=== PATIENT | female | born 1990 | race Caucasian/White ===

== ENCOUNTER → 2016-08-10 | Outpatient (REF) | payer OTHER ==
[~2016-08-10] MED LIST: ACET50TA PO; ANUS2.5C2 TOP; COLA100C PO; FIOR1CAP PO; MOM30SS PO; MOTR200T44 PO; PERC5TAB6 PO
[2016-08-10 11:32] LABS: MEAN CORPUSCULAR HEMOGLOBIN 32.3 pg (27.0-33.0); MEAN CORPUSCULAR HGB CONC 33.9 g/dl (32.0-36.5); MEAN CORPUSCULAR VOLUME 95.4 fl (80.0-96.0); RED CELL DISTRIBUTION WIDTH 12.9 % (11.5-14.5)
[2016-08-10 12:03] LABS: ALBUMIN 4.1 GM/DL (3.2-5.2); ALBUMIN/GLOBULIN RATIO 1.32 (1.00-1.93); ALKALINE PHOSPHATASE 76 U/L (45-117); ALT/SGPT 26 U/L (12-78); ANION GAP 5 MEQ/L (8-16); AST/SGOT 15 U/L (15-37); BILIRUBIN,TOTAL 0.3 MG/DL (0.2-1.0); BLOOD UREA NITROGEN 14 MG/DL (7-18); CALCIUM LEVEL 8.7 MG/DL (8.5-10.1); CARBON DIOXIDE LEVEL 29 MEQ/L (21-32); CHLORIDE LEVEL 109 MEQ/L (98-107); CREATININE FOR GFR 0.65 MG/DL (0.55-1.02); GLOMERULAR FILTRATION RATE > 60.0 (>60); GLUCOSE, FASTING 63 MG/DL (70-105); POTASSIUM SERUM 4.3 MEQ/L (3.5-5.1); SODIUM LEVEL 143 MEQ/L (136-145); TOTAL PROTEIN 7.2 GM/DL (6.4-8.2)
== END ==
LOC: M SFHCLERA 08:34
PROVIDERS: ATTEND Physician Assistant
DX: F41.9 Anxiety disorder, unspecified (principal)

== ENCOUNTER 2016-08-30 12:21 | Emergency (ER) | payer OTHER ==
[2016-08-30] MEDS ORDERED: KETOROLAC 30 MG/ML VIAL (J1885) As Ordered ONE (13:14)
[2016-08-30] MEDS ORDERED: ALBUTEROL 90 MCG/ACT 8GM HFA INHALER As Ordered ONE (13:37)
--- NOTE | 2016-08-30 13:55 | EDDOCDS ---
Nurse's Notes [facility] Name: Kranthi Grier Age: 25 yrs Sex: Female : 1990 Arrival Date: 08/30/2016 Time: 12:21 Bed I6 / 28 Private MD: Jonatan Mathis R. Diagnosis: Acute bronchitis;Headache Presentation: 08/30 12:28 Presenting complaint: Patient states: that she has noticed some SOB upon exertion about ms18 1-2 weeks ago. Pt states that when it happens, she starts to cough. Cool air helps calm the pt's symptoms. This patient has no additional risk factors. Adult Sepsis Screening: The patient does not have new or worsening altered mentation. Patient's respiratory rate is less than 22. Systolic blood pressure is greater than 100. Patient has a qSOFA score of 0- Negative Sepsis Screen. Suicide/Homicide risk assessment- the patient denies having any suicidal and/or homicidal ideations and does not present with any other emotional, behavioral or mental health complaints. Status: The patient is a dependent. Transition of care: patient was not received from another setting of care. 12:28 Acuity: CHRISTINE Level 3 ms18 12:28 Method Of Arrival: Walkin/Carried/Asstd ms18 Triage Assessment: 12:33 Headache History: Other not like previous headaches. General: Appears in no apparent ms18 distress, comfortable, Behavior is appropriate for age, cooperative. Pain: Location: head Pain currently is 7 out of 10 on a pain scale. Pain began 1 day ago Also complains of photophobia. HIV screening NA for this visit Offered previously. The patient is triaged at the bedside. See Assessment in Nurses Notes section of ED record. The patient is triaged at the bedside. See Assessment in Nurses Notes section of ED record. Neurological: Level of Consciousness is awake, alert, obeys commands, Oriented to person, place, time. Respiratory: Airway is patent Respiratory effort is even, unlabored. Derm: Skin is pink, warm & dry. 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 Fioricet 50-300-40 mg Oral cap 1 cap every 8 hours - PMHx: Depression; Headaches; - PSHx: D & C; - Social history: Smoking status: Patient uses tobacco products, current some day smoker. No barriers to communication noted, The patient speaks fluent Emirati. - Family history: Not pertinent. - : The pt / caregiver states he / she is not on anticoagulants. Home medication list is obtained from the patient. - Exposure Risk Screening:: None identified. Screenin:20 Screening information is obtained from the patient. Fall risk: No risks identified. jmk Assistance ADL's: requires no assistance with activities of daily living. Abuse/DV Screen: The patient / caregiver reports he/she is: not in a situation that causes fear, pain or injury. Nutritional screening: No deficits noted. Advance Directives: Currently, there is no health care proxy. There is no active DNR order. There is no living will. There is no Power of Tag Maker. Advance directive information has not previously been placed in an [facility] medical record. home support is adequate. Assessment: 13:18 General: Appears in no apparent distress, skin warm and dry color satisfactory . alert jmk and oriented x 3. slightly photophobic. Indicates discomfort about forehead., chest is CTA. no use of accessory muscles. speech uninterrupted by resp effort.. Neurological: Level of Consciousness is awake, Oriented to person, place, time. Respiratory: No deficits noted. Airway is patent Respiratory effort is even, unlabored, Respiratory pattern is regular, Breath sounds are clear bilaterally. 13:50 General: Appears continues to present in NAD. reports little change in head pain. jmk concerned over coughing after getting MDI. education provided. Vital Signs: 12:25 BP 132 / 73; Pulse 78; Resp 18 S; Temp 98.2(O); Pulse Ox 98% on R/A; Weight 65.77 kg gr2 (R); Height 5 ft. 9 in. (175.26 cm) (R); Pain 6/10; 13:48 BP 125 / 68; Pulse 70; Resp 18; Temp 98.0(O); Pulse Ox 98% ; Pain 7/10; jrd 12:25 Body Mass Index 21.41 (65.77 kg, 175.26 cm) gr2 Vitals: 12:25 Log In Time: August 30, 2016 at 12:25. gr2 ED Course: 12:23 Patient visited by Cb Negrete. gr2 12:23 Patient moved to Waiting gr2 12:24 Jonatan Mathis is Private Physician. gr2 12:26 Patient visited by Cb Negrete. gr2 12:26 Patient moved to Pre RCE gr2 12:30 Triage Initiated ms18 12:56 Patient moved to Triage 1 mlb1 12:59 Godfrey Bullock PA-C is PHCP. cc10 12:59 Javier Romero MD is Attending Physician. cc10 12:59 Patient visited by Godfrey Bullock PA-C. cc10 12:59 Patient visited by Godfrey Bullock PA-C. cc10 13:12 Patient moved to I6 / 28 mlb1 13:20 Patient visited by Shan Hernandez RN. jmk 13:26 Jonatan Mathis is Referral Physician. cc10 13:48 Patient visited by Arnol Cuevas PCA. jrd 13:50 The patient / caregiver is instructed regarding the plan of care and ED course. jmk 13:50 No IV's were initiated during this patient's visit. No procedures done that require jmk assistance. Administered Medications: 13:24 Drug: ketorolac 60 mg [ketorolac 30 mg/mL (1 mL) injection solution (2 mL)] Route: IM; mb9 Site: right gluteus; 13:50 Follow up: Response: No significant change. jmk 13:43 Drug: Ventolin 2 puffs [Ventolin HFA 90 mcg/actuation aerosol inhaler (2 puffs)] Route: cs15 Inhalation; Point of Care Testing: Urine : 13:12 hCG Reading: Negative; Control Reading: Positive; mlb1 Ranges: RT: 13:43 Initial Med Neb Given as ordered. Oxygen is room air. Respiratory: Respiratory effort cs15 is unlabored, Respiratory pattern is symmetrical, Breath sounds are clear bilaterally. Reports shortness of breath when active or laying down. Order Results: There are currently no results for this order. Outcome: 13:26 Discharge ordered by Provider. cc10 13:50 Discharge Assessment: Patient awake, alert and oriented x 3. No cognitive and/or jmk functional deficits noted. Patient verbalized understanding of disposition instructions. patient administered narcotics - no. The following High Risk Discharge criteria are identified: None. Discharged to home ambulatory. Condition: good. Discharge instructions given to patient, Instructed on discharge instructions, follow up and referral plans. medication usage, Demonstrated understanding of instructions, medications, Pt was receptive of discharge instructions/ teaching. No special radiology studies were completed. Property :Personal belongings accompany Pt. 13:53 Patient left the ED. malinda Signatures: Shan Hernandez,RN RN Chandrakant Morales RN RN mlb1 Cb Negrete gr2 Godfrey Bullock, PA-C PA-C cc10 Maday WallerRN RN ms18 Arnol Cuevas PCA ROLL PLUGGER MACHINE OPERATOR Chandrakant KingRN RN mb9 Ran Johnson,RT RT cs15 MTDD
--- NOTE | 2016-08-30 13:55 | EDDOCDS ---
Physician Documentation [facility] Name: Kranthi Grier Age: 25 yrs Sex: Female : 1990 Arrival Date: 08/30/2016 Time: 12:21 Bed I6 Private MD: Jonatan Mathis R. Disposition: 08/30/16 13:26 Discharged to Home/Self Care. Impression: Acute bronchitis, Headache. - Condition is Stable. - Discharge Instructions: Acute Bronchitis, General Headache Without Cause. - Medication Reconciliation form. - Follow up: Jonatan Mathis; When: Call to arrange an appointment; Reason: Wound/Symptom Recheck, Recheck today's complaints, Continuance of care. - Problem is an ongoing problem. - Symptoms have improved. - Notes: May use 2 puffs of albuterol every 6 hours as needed for wheezing. Follow up with your regular doctor as discussed. Historical: - Allergies: Morphinemigraine; - Home Meds: 1. Fioricet 50-300-40 mg Oral cap 1 cap every 8 hours - PMHx: Depression; Headaches; - PSHx: D & C; - Social history: Smoking status: Patient uses tobacco products, current some day smoker. No barriers to communication noted, The patient speaks fluent Eritrean. - Family history: Not pertinent. - : The pt / caregiver states he / she is not on anticoagulants. Home medication list is obtained from the patient. - Exposure Risk Screening:: None identified. 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 9 in. (175.26 cm) (R); Pain 6/10; 13:48 BP 125 / 68; Pulse 70; Resp 18; Temp 98.0(O); Pulse Ox 98% ; Pain 7/10; jrd 12:25 Body Mass Index 21.41 (65.77 kg, 175.26 cm) gr2 MDM: 13:03 Call Respiratory ordered. cc10 13:03 MDI teaching with Spacer ordered. cc10 13:03 Ventolin Inhaler 2 puffs Inhalation once ordered. cc10 13:03 ketorolac 60 mg IM once ordered. cc10 13:04 Financial registration complete. lg 13:11 UCG by Nursing ordered. cc10 13:12 Call Respiratory complete. mlb1 Point of Care Testing: Urine : 13:12 hCG Reading: Negative; Control Reading: Positive; mlb1 Ranges: Administered Medications: 13:24 Drug: ketorolac 60 mg [ketorolac 30 mg/mL (1 mL) injection solution (2 mL)] Route: IM; mb9 Site: right gluteus; 13:50 Follow up: Response: No significant change. berek 13:43 Drug: Ventolin 2 puffs [Ventolin HFA 90 mcg/actuation aerosol inhaler (2 puffs)] Route: cs15 Inhalation; Signatures: Shan Hernandez,STEVIE RN berek Liza Jhaveri, Dionte Reg Chandrakant Vitale RN RN mlb1 Godfrey Bullock, PA-C PA-C cc10 Maday Waller RN RN ms18 Chandrakant Devine RN mb9 Ran Johnson RT cs15 MTDD
--- NOTE | 2016-09-01 14:55 | EDDOCDS ---
Nurse's Notes [facility] Name: Kranthi Grier Age: 25 yrs Sex: Female : 1990 Arrival Date: 08/30/2016 Time: 12:21 Bed I6 / 28 Private MD: Jonatan Mathis R. Diagnosis: Acute bronchitis;Headache Presentation: 08/30 12:28 Presenting complaint: Patient states: that she has noticed some SOB upon exertion about ms18 1-2 weeks ago. Pt states that when it happens, she starts to cough. Cool air helps calm the pt's symptoms. This patient has no additional risk factors. Adult Sepsis Screening: The patient does not have new or worsening altered mentation. Patient's respiratory rate is less than 22. Systolic blood pressure is greater than 100. Patient has a qSOFA score of 0- Negative Sepsis Screen. Suicide/Homicide risk assessment- the patient denies having any suicidal and/or homicidal ideations and does not present with any other emotional, behavioral or mental health complaints. Status: The patient is a dependent. Transition of care: patient was not received from another setting of care. 12:28 Acuity: CHRISTINE Level 3 ms18 12:28 Method Of Arrival: Walkin/Carried/Asstd ms18 Triage Assessment: 12:33 Headache History: Other not like previous headaches. General: Appears in no apparent ms18 distress, comfortable, Behavior is appropriate for age, cooperative. Pain: Location: head Pain currently is 7 out of 10 on a pain scale. Pain began 1 day ago Also complains of photophobia. HIV screening NA for this visit Offered previously. The patient is triaged at the bedside. See Assessment in Nurses Notes section of ED record. The patient is triaged at the bedside. See Assessment in Nurses Notes section of ED record. Neurological: Level of Consciousness is awake, alert, obeys commands, Oriented to person, place, time. Respiratory: Airway is patent Respiratory effort is even, unlabored. Derm: Skin is pink, warm & dry. 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 Fioricet 50-300-40 mg Oral cap 1 cap every 8 hours - PMHx: Depression; Headaches; - PSHx: D & C; - Social history: Smoking status: Patient uses tobacco products, current some day smoker. No barriers to communication noted, The patient speaks fluent Armenian. - Family history: Not pertinent. - : The pt / caregiver states he / she is not on anticoagulants. Home medication list is obtained from the patient. - Exposure Risk Screening:: None identified. Screenin:20 Screening information is obtained from the patient. Fall risk: No risks identified. jmk Assistance ADL's: requires no assistance with activities of daily living. Abuse/DV Screen: The patient / caregiver reports he/she is: not in a situation that causes fear, pain or injury. Nutritional screening: No deficits noted. Advance Directives: Currently, there is no health care proxy. There is no active DNR order. There is no living will. There is no Power of Security Business Analyst. Advance directive information has not previously been placed in an [facility] medical record. home support is adequate. Assessment: 13:18 General: Appears in no apparent distress, skin warm and dry color satisfactory . alert jmk and oriented x 3. slightly photophobic. Indicates discomfort about forehead., chest is CTA. no use of accessory muscles. speech uninterrupted by resp effort.. Neurological: Level of Consciousness is awake, Oriented to person, place, time. Respiratory: No deficits noted. Airway is patent Respiratory effort is even, unlabored, Respiratory pattern is regular, Breath sounds are clear bilaterally. 13:50 General: Appears continues to present in NAD. reports little change in head pain. jmk concerned over coughing after getting MDI. education provided. Vital Signs: 12:25 BP 132 / 73; Pulse 78; Resp 18 S; Temp 98.2(O); Pulse Ox 98% on R/A; Weight 65.77 kg gr2 (R); Height 5 ft. 9 in. (175.26 cm) (R); Pain 6/10; 13:48 BP 125 / 68; Pulse 70; Resp 18; Temp 98.0(O); Pulse Ox 98% ; Pain 7/10; jrd 12:25 Body Mass Index 21.41 (65.77 kg, 175.26 cm) gr2 Vitals: 12:25 Log In Time: August 30, 2016 at 12:25. gr2 ED Course: 12:23 Patient visited by Cb Negrete. gr2 12:23 Patient moved to Waiting gr2 12:24 Jonatan Mathis is Private Physician. gr2 12:26 Patient visited by Cb Negrete. gr2 12:26 Patient moved to Pre RCE gr2 12:30 Triage Initiated ms18 12:56 Patient moved to Triage 1 mlb1 12:59 Godfrey Bullock PA-C is PHCP. cc10 12:59 Javier Romero MD is Attending Physician. cc10 12:59 Patient visited by Godfrey Bullock PA-C. cc10 12:59 Patient visited by Godfrey Bullock PA-C. cc10 13:12 Patient moved to I6 / 28 mlb1 13:20 Patient visited by Shan Hernandez RN. jmk 13:26 Jonatan Mathis is Referral Physician. cc10 13:48 Patient visited by Arnol Cuevas PCA. jrd 13:50 The patient / caregiver is instructed regarding the plan of care and ED course. jmk 13:50 No IV's were initiated during this patient's visit. No procedures done that require jmk assistance. 14:18 [facility] Payment Agreement was scanned into [employer] and attached to record. 14:48 T-Sheet-- Draft Copy was scanned into [employer] and attached to record. klr Administered Medications: 13:24 Drug: ketorolac 60 mg [ketorolac 30 mg/mL (1 mL) injection solution (2 mL)] Route: IM; mb9 Site: right gluteus; 13:50 Follow up: Response: No significant change. jmk 13:43 Drug: Ventolin 2 puffs [Ventolin HFA 90 mcg/actuation aerosol inhaler (2 puffs)] Route: cs15 Inhalation; Point of Care Testing: Urine : 13:12 hCG Reading: Negative; Control Reading: Positive; mlb1 Ranges: RT: 13:43 Initial Med Neb Given as ordered. Oxygen is room air. Respiratory: Respiratory effort cs15 is unlabored, Respiratory pattern is symmetrical, Breath sounds are clear bilaterally. Reports shortness of breath when active or laying down. Order Results: There are currently no results for this order. Outcome: 13:26 Discharge ordered by Provider. cc10 13:50 Discharge Assessment: Patient awake, alert and oriented x 3. No cognitive and/or jmk functional deficits noted. Patient verbalized understanding of disposition instructions. patient administered narcotics - no. The following High Risk Discharge criteria are identified: None. Discharged to home ambulatory. Condition: good. Discharge instructions given to patient, Instructed on discharge instructions, follow up and referral plans. medication usage, Demonstrated understanding of instructions, medications, Pt was receptive of discharge instructions/ teaching. No special radiology studies were completed. Property :Personal belongings accompany Pt. 13:53 Patient left the ED. malinda Signatures: Shan Hernandez,RN RN Liza Bravo, Reg Reg lg Chandrakant Vitale, RN RN mlb1 Cb Negrete gr2 Godfrey Bullock, PA-C PA-C cc10 Maday Waller,RN RN ms18 Arnol Cuevas, MEMBER SERVICES COORDINATOR MEMBER SERVICES COORDINATOR d Chandrakant Devine,RN RN mb9 Ran Johnson,RT RT cs15 Leigh Ann Gray Chart Complete NIVIA
--- NOTE | 2016-09-01 14:55 | EDDOCDS ---
Physician Documentation [facility] Name: Kranthi Grier Age: 25 yrs Sex: Female : 1990 Arrival Date: 08/30/2016 Time: 12:21 Bed I6 Private MD: Jonatan Mathis R. Disposition: 08/30/16 13:26 Discharged to Home/Self Care. Impression: Acute bronchitis, Headache. - Condition is Stable. - Discharge Instructions: Acute Bronchitis, General Headache Without Cause. - Medication Reconciliation form. - Follow up: Jonatan Mathis; When: Call to arrange an appointment; Reason: Wound/Symptom Recheck, Recheck today's complaints, Continuance of care. - Problem is an ongoing problem. - Symptoms have improved. - Notes: May use 2 puffs of albuterol every 6 hours as needed for wheezing. Follow up with your regular doctor as discussed. Historical: - Allergies: Morphinemigraine; - Home Meds: 1. Fioricet 50-300-40 mg Oral cap 1 cap every 8 hours - PMHx: Depression; Headaches; - PSHx: D & C; - Social history: Smoking status: Patient uses tobacco products, current some day smoker. No barriers to communication noted, The patient speaks fluent Cameroonian. - Family history: Not pertinent. - : The pt / caregiver states he / she is not on anticoagulants. Home medication list is obtained from the patient. - Exposure Risk Screening:: None identified. 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 9 in. (175.26 cm) (R); Pain 6/10; 13:48 BP 125 / 68; Pulse 70; Resp 18; Temp 98.0(O); Pulse Ox 98% ; Pain 7/10; jrd 12:25 Body Mass Index 21.41 (65.77 kg, 175.26 cm) gr2 MDM: 13:03 Call Respiratory ordered. cc10 13:03 MDI teaching with Spacer ordered. cc10 13:03 Ventolin Inhaler 2 puffs Inhalation once ordered. cc10 13:03 ketorolac 60 mg IM once ordered. cc10 13:04 Financial registration complete. lg 13:11 UCG by Nursing ordered. cc10 13:12 Call Respiratory complete. mlb1 14:18 [facility] Payment Agreement was scanned into [employer] and attached to record. lg 14:48 T-Sheet-- Draft Copy was scanned into [employer] and attached to record. klr Point of Care Testing: Urine : 13:12 hCG Reading: Negative; Control Reading: Positive; mlb1 Ranges: Administered Medications: 13:24 Drug: ketorolac 60 mg [ketorolac 30 mg/mL (1 mL) injection solution (2 mL)] Route: IM; mb9 Site: right gluteus; 13:50 Follow up: Response: No significant change. berek 13:43 Drug: Ventolin 2 puffs [Ventolin HFA 90 mcg/actuation aerosol inhaler (2 puffs)] Route: cs15 Inhalation; Signatures: Shan Hernandez,RN RN jmk Liza Jhaveri, Dionte Rapp lg Chandrakant Vitale RN RN mlb1 Godfrey Bullock, PA-C PA-C cc10 Maday Waller RN RN ms18 Leigh Ann Gray Michael RN mb9 Ran Johnson RT cs15 The chart was reviewed and I authenticate all verbal orders and agree with the evaluation and treatment provided.Attachments: 14:18 [facility] Payment Agreement lg 14:48 T-Sheet-- Draft Copy klr Chart Complete MTDD
--- NOTE | 2016-09-01 14:55 | EDDOCDS ---
Physician Documentation [facility] Name: Kranthi Grier Age: 25 yrs Sex: Female : 1990 Arrival Date: 08/30/2016 Time: 12:21 Bed I6 Private MD: Jonatan Mathis R. Disposition: 08/30/16 13:26 Discharged to Home/Self Care. Impression: Acute bronchitis, Headache. - Condition is Stable. - Discharge Instructions: Acute Bronchitis, General Headache Without Cause. - Medication Reconciliation form. - Follow up: Jonatan Mathis; When: Call to arrange an appointment; Reason: Wound/Symptom Recheck, Recheck today's complaints, Continuance of care. - Problem is an ongoing problem. - Symptoms have improved. - Notes: May use 2 puffs of albuterol every 6 hours as needed for wheezing. Follow up with your regular doctor as discussed. Historical: - Allergies: Morphinemigraine; - Home Meds: 1. Fioricet 50-300-40 mg Oral cap 1 cap every 8 hours - PMHx: Depression; Headaches; - PSHx: D & C; - Social history: Smoking status: Patient uses tobacco products, current some day smoker. No barriers to communication noted, The patient speaks fluent Fijian. - Family history: Not pertinent. - : The pt / caregiver states he / she is not on anticoagulants. Home medication list is obtained from the patient. - Exposure Risk Screening:: None identified. 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 9 in. (175.26 cm) (R); Pain 6/10; 13:48 BP 125 / 68; Pulse 70; Resp 18; Temp 98.0(O); Pulse Ox 98% ; Pain 7/10; jrd 12:25 Body Mass Index 21.41 (65.77 kg, 175.26 cm) gr2 MDM: 13:03 Call Respiratory ordered. cc10 13:03 MDI teaching with Spacer ordered. cc10 13:03 Ventolin Inhaler 2 puffs Inhalation once ordered. cc10 13:03 ketorolac 60 mg IM once ordered. cc10 13:04 Financial registration complete. lg 13:11 UCG by Nursing ordered. cc10 13:12 Call Respiratory complete. mlb1 14:18 [facility] Payment Agreement was scanned into [employer] and attached to record. lg 14:48 T-Sheet-- Draft Copy was scanned into [email or web address] and attached to record. klr Point of Care Testing: Urine : 13:12 hCG Reading: Negative; Control Reading: Positive; mlb1 Ranges: Administered Medications: 13:24 Drug: ketorolac 60 mg [ketorolac 30 mg/mL (1 mL) injection solution (2 mL)] Route: IM; mb9 Site: right gluteus; 13:50 Follow up: Response: No significant change. berek 13:43 Drug: Ventolin 2 puffs [Ventolin HFA 90 mcg/actuation aerosol inhaler (2 puffs)] Route: cs15 Inhalation; Signatures: Shan Hernandez,RN RN jmk Liza Jhaveri, Dionte Rapp lg Chandrakant Vitale RN RN mlb1 Godfrey Bullock, PA-C PA-C cc10 Maday Waller RN RN ms18 Leigh Ann Gray Michael RN mb9 Ran Johnson RT cs15 The chart was reviewed and I authenticate all verbal orders and agree with the evaluation and treatment provided.Attachments: 14:18 [facility] Payment Agreement lg 14:48 T-Sheet-- Draft Copy klr Chart Complete MTDD
== END 2016-08-30 13:53 | disposition home or self-care (01) ==
LOC: M ED 12:21
DX: J20.9 Acute bronchitis, unspecified (principal); R51 Headache; F32.9 Major depressive disorder, single episode, unspecified; Z72.0 Tobacco use; Z88.5 Allergy status to narcotic agent
CPT/HCPCS: 81025; 94640; 96372; 99283; J1885

== ENCOUNTER → 2016-10-03 | Outpatient (REF) | payer OTHER ==
[2016-10-03 18:14] LABS: ALBUMIN 4.2 GM/DL (3.2-5.2); ALBUMIN/GLOBULIN RATIO 1.45 (1.00-1.93); ALKALINE PHOSPHATASE 98 U/L (45-117); ALT/SGPT 30 U/L (12-78); ANION GAP 7 MEQ/L (8-16); AST/SGOT 20 U/L (15-37); BILIRUBIN,TOTAL 0.2 MG/DL (0.2-1.0); BLOOD UREA NITROGEN 14 MG/DL (7-18); CALCIUM LEVEL 9.1 MG/DL (8.5-10.1); CARBON DIOXIDE LEVEL 29 MEQ/L (21-32); CHLORIDE LEVEL 103 MEQ/L (98-107); CREATININE FOR GFR 0.62 MG/DL (0.55-1.02); GLOMERULAR FILTRATION RATE > 60.0 (>60); GLUCOSE, FASTING 98 MG/DL (70-105); POTASSIUM SERUM 4.3 MEQ/L (3.5-5.1); SODIUM LEVEL 139 MEQ/L (136-145); TOTAL PROTEIN 7.1 GM/DL (6.4-8.2)
[2016-10-06 00:10] LABS: Lyme Disease IgG/IgM Antibodie <0.91 ISR (0.00-0.90); Lyme Disease IgM Ab Quantitati <0.80 index (0.00-0.79)
== END ==
LOC: M SFHCLERA 13:39
PROVIDERS: ATTEND Physician Assistant
DX: M62.82 Rhabdomyolysis (principal)

== ENCOUNTER → 2016-10-04 | Outpatient (REF) | payer OTHER ==
[~2016-10-04] MED LIST changes: +DICL75TA; +FLOM5CAP PO; +NORCOTAB PO; +RIZA5TAB3; +ZOFR4TAB3 PO
== END ==
LOC: M LAB REF 17:05
PROVIDERS: ATTEND Advanced Practice Midwife
DX: Z12.4 Encounter for screening for malignant neoplasm of cervix (principal)

== ENCOUNTER 2016-10-07 14:47 | Emergency (ER) | payer OTHER ==
[~2016-10-07] VITALS: Ht 175.3 cm; Wt 66.7 kg
[~2016-10-07 14:47] MED LIST changes: -COLA100C PO; +COLA100C3 PO; -DICL75TA; -FLOM5CAP PO; -NORCOTAB PO; -RIZA5TAB3; -ZOFR4TAB3 PO
[2016-10-07] MEDS ORDERED: DICL75TA (14:54)
[2016-10-07] MEDS ORDERED: RIZA5TAB3 (14:54)
[2016-10-07] MEDS ORDERED: KETOROLAC 30 MG/ML VIAL (J1885) IV ONE (15:15)
[2016-10-07] MEDS ORDERED: ONDANSETRON 4MG/2ML VIAL (J2405) IV ONE ×2 (15:15→16:15)
[2016-10-07] MEDS ORDERED: NS 1,000 ML IV ONE (15:15)
[2016-10-07 16:00] LABS: ALBUMIN 4.1 GM/DL (3.2-5.2); ALBUMIN/GLOBULIN RATIO 1.37 (1.00-1.93); ALKALINE PHOSPHATASE 93 U/L (45-117); ALT/SGPT 22 U/L (12-78); ANION GAP 8 MEQ/L (8-16); AST/SGOT 15 U/L (15-37); BILIRUBIN,DIRECT < 0.1 MG/DL (0.0-0.2); BILIRUBIN,TOTAL 0.3 MG/DL (0.2-1.0); BLOOD UREA NITROGEN 11 MG/DL (7-18); CALCIUM LEVEL 8.4 MG/DL (8.5-10.1); CARBON DIOXIDE LEVEL 27 MEQ/L (21-32); CHLORIDE LEVEL 107 MEQ/L (98-107); CREATININE FOR GFR 0.67 MG/DL (0.55-1.02); GLOMERULAR FILTRATION RATE > 60.0 (>60); GLUCOSE, FASTING 105 MG/DL (70-105); POTASSIUM SERUM 4.1 MEQ/L (3.5-5.1); SODIUM LEVEL 142 MEQ/L (136-145); TOTAL PROTEIN 7.1 GM/DL (6.4-8.2)
[2016-10-07 16:07] LABS: MEAN CORPUSCULAR HEMOGLOBIN 31.1 pg (27.0-33.0); MEAN CORPUSCULAR HGB CONC 32.9 g/dl (32.0-36.5); MEAN CORPUSCULAR VOLUME 94.4 fl (80.0-96.0); PLATELET COUNT, AUTOMATED 284 k/mm3 (150-450); RED CELL DISTRIBUTION WIDTH 11.7 % (11.5-14.5); WHITE BLOOD COUNT 5.1 K/mm3 (4.0-10.0)
[2016-10-07] MEDS ORDERED: HYDROmorphone HCL 1 MG/ML SYRINGE (J1170) IV ONE (16:15)
[2016-10-07 16:22] LABS: BASO % 0.7 % (0.0-1.0); EOS % 6.5 % (0.0-3.0); NEUTROPHILS % 40.9 % (36.0-66.0)
[2016-10-07 16:23] LABS: LYMPH # 2.2 K/mm3 (1.5-6.5); NEUTROPHILS # 2.1 K/mm3 (1.8-7.7)
[2016-10-07 16:24] LABS: ADD MORPHOLOGY? NO; DIFF SLIDE NUMBER 125; EOS # 0.3 K/mm3 (0.0-0.50); LARGE UNSTAINED CELL # 0.2 K/mm3 (0.0-0.4); MONO # 0.4 K/mm3 (0.0-0.8)
[2016-10-07 16:51] VITALS: BP 128/79
--- NOTE | 2016-10-07 16:59 | REP ---
Clinical: Left renal colic. 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 Liver, spleen, pancreas, gallbladder, and bilateral adrenal glands are normal for noncontrast evaluation. The enteric system is without obstruction or acute inflammatory process. Sigmoid diverticula noted without acute diverticulitis. Pelvis demonstrates normal bladder and age-appropriate uterus/adnexa. No ascites. No free air. No adenopathy. Abdominal aorta without aneurysm. Surrounding musculoskeletal structures are intact. Lung bases clear. Impression: 1. 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 Consider pre and postcontrast CT of the abdomen and pelvis with delayed imaging for further investigation if necessary. 2. No further acute intra-abdominal or pelvic pathology appreciated. Signed by Joao Ruiz MD 10/07/2016 04:50 P
[2016-10-07] MEDS ORDERED: NORCOTAB PO (17:10)
[2016-10-07] MEDS ORDERED: FLOM5CAP PO (17:10)
[2016-10-07] MEDS ORDERED: ZOFR4TAB3 PO (17:12)
[2016-10-07] MEDS ORDERED: TAMSULOSIN 0.4 MG CAP PO ONE (17:15)
--- NOTE | 2016-10-08 20:45 | ED PDOC ---
Post-Departure Follow-Up dr lambert and jozef hugo faxed formal report of ct abd/p for fu Roro Archuleta MD Oct 08, 2016 20:45
== END 2016-10-07 17:22 | disposition home or self-care (01) ==
LOC: M ED 16:00
DX: N20.1 Calculus of ureter (principal); I10 Essential (primary) hypertension
CPT/HCPCS: 36415; 74176; 80048; 80076; 81001; 81025; 83690; 85025; 87086; 96361; 96374; 96375; 99284; J1170; J1885; J2405

== ENCOUNTER → 2016-10-10 | Outpatient (REF) | payer OTHER ==
[~2016-10-10] MED LIST changes: +COLA100C PO; -COLA100C3 PO; +DICL75TA; +FLOM5CAP PO; +NORCOTAB PO; +RIZA5TAB3; +ZOFR4TAB3 PO
== END ==
LOC: M SFHCLERA 08:12
PROVIDERS: ATTEND Physician Assistant
DX: R74.8 Abnormal levels of other serum enzymes (principal)

== ENCOUNTER → 2016-10-16 | Outpatient (REF) | payer OTHER | LOC: M SMT 17:13 | PROVIDERS: ATTEND Nurse Practitioner Family | DX: N20.0 Calculus of kidney (principal) ==

== ENCOUNTER → 2016-10-22 | Outpatient (REF) | payer OTHER ==
[~2016-10-22] MED LIST changes: -COLA100C PO; +COLA100C3 PO
== END ==
LOC: M LABSMT 11:16
PROVIDERS: ATTEND Nurse Practitioner Family
DX: N20.0 Calculus of kidney (principal)

== ENCOUNTER → 2016-10-27 | Outpatient (CLI) | payer OTHER ==
--- NOTE | 2016-10-27 13:25 | REP ---
RENAL AND BLADDER ULTRASOUND: Real-time sonographic evaluation of the kidneys performed and demonstrates horseshoe type configuration of the kidneys, joined in the midline. The right side measures 8.5 x 3.4 x 3.1 cm and left 8.0 x 3.3 x 2.7 cm. I do not see evidence of hydronephrosis on the left. There is mild pelviectasis on the right. There is a calculus in the mid left kidney 7 x 4 x 6 mm. No definite renal mass is seen. Urinary bladder is only mildly distended. A left ureteral jet is seen with Doppler color evaluation. Bladder measures 5.1 x 5.6 x 1.8 cm. 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 No left sided hydronephrosis. Right side demonstrates mild pelviectasis. A left ureteral jet is visualized. Signed by Alessio Quispe MD 10/27/2016 03:29 P
== END ==
LOC: M SMT 09:19
PROVIDERS: ATTEND Nurse Practitioner Family
DX: N20.0 Calculus of kidney (principal)

== ENCOUNTER → 2016-11-10 | Outpatient (CLI) | payer OTHER ==
--- NOTE | 2016-11-10 13:37 | REP ---
LUMBAR SPINE, FIVE VIEWS: HISTORY: Left back pain. There is no acute fracture or subluxation. The intervertebral discs are normal in height. The facet joints are normal in appearance. A 3 mm calcification is present along the left lateral aspect of the L3-4 intervertebral disc . This likely corresponds to the renal calculus noted in a recent CT examination. IMPRESSION: There is no acute fracture or subluxation. Signed by Eder Schaffer MD 11/10/2016 01:52 P
== END ==
LOC: M LRY 12:23
PROVIDERS: ATTEND Physician Assistant
DX: M54.42 Lumbago with sciatica, left side (principal)

== ENCOUNTER → 2016-11-17 | Outpatient (CLI) | payer OTHER | LOC: M PLARAD 15:40 | PROVIDERS: ATTEND Physician Assistant | DX: M54.42 Lumbago with sciatica, left side (principal) ==